=== PATIENT | male | born 1985 | race Caucasian/White ===

== ENCOUNTER 2017-01-13 13:16 | Emergency (ER) | payer MEDICAID ==
[~2017-01-13] VITALS: Ht 182.9 cm; Wt 77.1 kg
[2017-01-13] MEDS ORDERED: SODIUM CHLORIDE FLUSH 10ML SYR IVF ONE (14:30)
[2017-01-13 14:40] LABS: HEMATOCRIT 47.7 % (39.2-51.8); WHITE BLOOD COUNT 12.5 x10^3/uL (3.4-10)
[2017-01-13 14:48] LABS: BLOOD UREA NITROGEN 16 mg/dL (7-18)
[2017-01-13] MEDS ORDERED: CEFTRIAXONE 250 MG ONE (16:21)
[2017-01-13] MEDS ORDERED: POTASSIUM CHLORIDE 20 MEQ TAB.ER.PRT ONE (16:21)
[2017-01-13 16:30] VITALS: BP 121/81
[2017-01-13] MEDS ORDERED: CEFTRIAXONE 1,000 MG IM ONE (16:30)
[2017-01-13] MEDS ORDERED: POTASSIUM CHLORIDE 20 MEQ TAB.ER.PRT PO ONE (16:30)
== END 2017-01-13 16:32 | disposition home or self-care (01) ==
LOC: ED 16:11
DX: N45.3 Epididymo-orchitis (principal); K40.90 Unilateral inguinal hernia, without obstruction or gangrene, not specified as recurrent
CPT/HCPCS: 36415; 76870; 80048; 81003; 82040; 85025; 87491; 87591; 93975; 96372; 99285; J0696